=== PATIENT | male | born 1975 | race Caucasian/White ===

== ENCOUNTER 2018-02-10 20:40 | Emergency (ER) | payer SELFPAY ==
[2018-02-10] MEDS ORDERED: Bacitracin Oint 1 GM U/D Packet TOP ONE (21:26)
[2018-02-10] MEDS ORDERED: Lidocaine 1% with EPINEPHrine 1:100,000 50 ML MDV INFILT ONE (21:26)
[2018-02-10] MEDS ORDERED: Diphtheria,Pertussis(Acell),Tetanus Vaccine 0.5 ML SDV IM ONE (21:30)
--- NOTE | 2018-02-10 21:30 | EDM.PDOC ---
ED HPI GENERAL MEDICAL PROBLEM - General Chief Complaint: Laceration Stated Complaint: CUT LT HAND Time Seen by Provider: 02/10/18 21:04 Source of Information: Reports: Patient History Limitations: Reports: No Limitations - History of Present Illness INITIAL COMMENTS - FREE TEXT/NARRATIVE: 42 yo male presents from work after breaking bowl in kitchen and glass lacerated left hand. bleeding controlled. pain tolerable. left hand dominate. generally healthy. Left Hand Pain Score (Numeric/FACES): 2 - Related Data Allergies Allergy/AdvReac Type Severity Reaction Status Date / Time No Known Allergies Allergy Verified 02/10/18 21:09 Home Meds: Home Meds NK [No Known Home Meds] 02/10/18 [History] Past Medical History Cardiovascular History: Reports: Hypertension Musculoskeletal History: Reports: Fracture - Infectious Disease History Infectious Disease History: Reports: Chicken Pox - Past Surgical History HEENT Surgical History: Reports: Tonsillectomy Social & Family History - Tobacco Use Smoking Status *Q: Never Smoker - Caffeine Use Caffeine Use: Reports: None - Alcohol Use Days Per Week of Alcohol Use: 3 Number of Drinks Per Day: 2 Total Drinks Per Week: 6 - Recreational Drug Use Recreational Drug Use: No ED ROS GENERAL - Review of Systems Review Of Systems: See Below Constitutional: Denies: Fever, Chills Respiratory: Denies: Shortness of Breath, Wheezing Cardiovascular: Denies: Chest Pain ED EXAM, SKIN/RASH Exam: See Below Exam Limited By: No Limitations General Appearance: Alert, WD/WN, No Apparent Distress, Other (exam limited to left hand) Skin: Other (left dorsum laceration 2 cm) ED SKIN PROCEDURES - Laceration/Wound Repair Left Dorsal Hand Lac/Wound length In cm: 2 Appearance: Superficial Distal NVT: Neuro & Vascular Intact, No Tendon Injury Anesthetic Type: Local Local Anesthesia - Lidocaine (Xylocaine): 1% with EPI Local Anesthetic Volume: 3cc Skin Prep: Chlorhexidine (Hibiciens), Saline Exploration/Debridement/Repair: Wound Explored, In a Bloodless Field, Explored to Base, No Foreign Material Found Closed with: Sutures Suture Size: 4-0 # of Sutures: 5 Suture Type: Nylon, Interrupted, Simple Course - Vital Signs Last Recorded V/S: Last Vital Signs Temp 36.6 C 02/10/18 21:16 Pulse 100 02/10/18 21:16 Resp 16 02/10/18 21:16 BP Pulse Ox 99 02/10/18 21:16 - Orders/Labs/Meds Orders: Active Orders 24 hr Category Date Time Status Vaccines to be Administered [RC] PER UNIT ROUTINE Care 02/10/18 21:30 Active Meds: Medications Discontinued Medications Generic Name Dose Route Start Last Admin Trade Name Gissel PRN Reason Stop Dose Admin Bacitracin 1 dose 02/10/18 21:26 02/10/18 21:30 Bacitracin Oint 1 Gm TOP 02/10/18 21:27 1 dose ONETIME ONE Administration Diphtheria/Tetanus/Acell Pertussis 0.5 ml 02/10/18 21:30 Adacel IM 02/10/18 21:31 .ONCE ONE Lidocaine/Epinephrine 3 ml 02/10/18 21:26 02/10/18 21:30 Xylocaine 1% With Epinephrine 1:100,000 INFILT 02/10/18 21:27 3 ml ONETIME ONE Administration - Re-Assessments/Exams Free Text/Narrative Re-Assessment/Exam: 02/10/18 21:54 closed without difficulty. Tdap given Departure - Departure Time of Disposition: 21:54 Disposition: Home, Self-Care 01 Condition: Good Clinical Impression: Hand laceration Qualifiers: Encounter type: initial encounter Foreign body presence: without foreign body Laterality: left Qualified Code(s): S61.412A - Laceration without foreign body of left hand, initial encounter - Discharge Information Instructions: Laceration Care, Adult, [id number] Referrals: PCP,None [Primary Care Provider] - Forms: ED Department Discharge Additional Instructions: sutures out in 7 days keep dry tonight, thereafter wash with warm soapy water pat dry keep clean observe for signs of infection - fire engine red, purulent drainage, increase in pain - My Orders Last 24 Hours: My Active Orders 02/10/18 21:30 Vaccines to be Administered [RC] PER UNIT ROUTINE - Assessment/Plan Last 24 Hours: My Active Orders 02/10/18 21:30 Vaccines to be Administered [RC] PER UNIT ROUTINE
== END 2018-02-10 22:09 | disposition home or self-care (01) ==
LOC: JP.ED 20:40
DX: S61.412A Laceration without foreign body of left hand, initial encounter (principal); Z23 Encounter for immunization; W25.XXXA Contact with sharp glass, initial encounter
CPT/HCPCS: 12001; 90471; 90715; 99283-25